=== PATIENT | female | born 1980 | race African-American/Black ===

== ENCOUNTER 2018-03-04 08:55 | Emergency (ER) | payer SELFPAY ==
[2018-03-04 10:15] LABS: NEG OBC UR NEG; POS OBC UR POS; U PREG PATIENT NEGATIVE (NEG)
[2018-03-04 10:19] LABS: BILIRUBIN,URINE NEGATIVE (NEG); CLARITY,URINE CLEAR; COLOR,URINE YELLOW; GLUCOSE,URINE NEGATIVE (NEG); NITRITE,URINE NEGATIVE (NEG); PROTEIN,URINE NEGATIVE (NEG-TRACE); UROBILINOGEN,URINE 0.2 mg/dL (0.2 mg/dL)
[2018-03-04 10:24] LABS: SQUAMOUS EPITHELIAL CELL,UR FEW /LPF
[2018-03-04 10:25] LABS: BACTERIA,URINE FEW /HPF (0-FEW); RBC,URINE 0 /HPF (0-2); WBC,URINE 0 /HPF (0-4)
[2018-03-04] MEDS: metroNIDAZOLE 500 MG TABLET PO ×2 (11:37→11:49)
[2018-03-04] MEDS: cefTRIAXone IM 250 MG VIAL IM (11:37)
[2018-03-04] MEDS: AZITHROMYCIN 250 MG TABLET. PO (11:37)
[2018-03-05 14:32] LABS: CHLAMYDIA PROBE Negative (Negative); GC PROBE Negative (Negative)
== END 2018-03-04 11:53 | disposition home or self-care (01) ==
LOC: ER 08:55
DX: N76.0 Acute vaginitis (principal); B96.89 Other specified bacterial agents as the cause of diseases classified elsewhere; Z98.51 Tubal ligation status
CPT/HCPCS: 81001; 81025; 87491; 87591; 96372; 99284; J0696; Q0111; Q0144

== ENCOUNTER 2018-07-22 07:44 | Emergency (ER) | payer BC ==
[2018-03-04 11:45] VITALS: BP 123/79
[~2018-07-22] VITALS: Ht 162.6 cm; Wt 68.0 kg
[~2018-07-22 07:44] MED LIST: METR500T PO
--- NOTE | 2018-07-22 08:11 | PHYS DOC ---
Past Medical History Past Medical History: No Pertinent History Past Surgical History: Tubal ligation, Other Additional Past Surgical Histo: LEAP Alcohol Use: Occasionally Drug Use: None Adult General Chief Complaint Chief Complaint: OTHER COMPLAINTS HPI HPI Patient is a 38 year old evaluation of vaginal discharge. Patient reports concerns because she obtained a sex toy online. Patient reports onset of brown vaginal discharge shortly after use of a sex toy present for the last 4 days. Patient reports that she is due for a menstrual cycle but has only had small brown/dark red discharge. no abdominal pain, no dysuria. States that [facility] "[facility]". Patient denies any abdominal pelvic pain. Patient denies any sexual activity with male or female partners. Status post BTL Review of Systems Review of Systems Constitutional: Denies fever or chills [] Eyes: Denies change in visual acuity, redness, or eye pain [] HENT: Denies nasal congestion or sore throat [] Respiratory: Denies cough or shortness of breath [] Cardiovascular: No chest pain, no lower extremity edema, no orthopnea GI: Denies abdominal pain, nausea, vomiting, bloody stools or diarrhea [] : Denies dysuria or hematuria [] Musculoskeletal: Denies back pain or joint pain [] Integument: Denies rash or skin lesions [] Neurologic: Denies headache, focal weakness or sensory changes [] Endocrine: Denies polyuria or polydipsia [] All other systems were reviewed and found to be within normal limits, except as documented in this note. Allergies Allergies Allergies Coded Allergies Type Severity Reaction Last Updated Verified No Known Drug Allergies 03/04/18 No Physical Exam Physical Exam Constitutional: Well developed, well nourished, no acute distress, non-toxic appearance. [] HENT: Normocephalic, atraumatic, Eyes: PERRLA, EOMI, conjunctiva normal, no discharge. [] Neck: Normal range of motion, no tenderness, supple, no stridor. [] Cardiovascular:Heart rate regular rhythm, no murmur [] Lungs & Thorax: Bilateral breath sounds clear to auscultation [] Abdomen: Bowel sounds normal, soft, no tenderness, no masses, no pulsatile masses. [] Skin: Warm, dry, no erythema, no rash. [] Extremities: ROM intact, no edema. [] Neurologic: Alert and oriented X 3,no focal deficits noted. [] Psychologic: Affect normal, judgement normal, mood normal. [] Current Patient Data Vital Signs Vital Signs Date Time Temp Pulse Resp B/P (MAP) Pulse Ox O2 Delivery O2 Flow Rate FiO2 07/22/18 07:54 98.0 102 18 149/79 (102) 99 Room Air 98.0 Lab Values Laboratory Tests Test 07/22/18 08:01 POC Urine HCG, Qualitative Hcg negative (Negative) Microbiology 07/22/18 Wet Prep - Final, Complete EKG EKG [] Radiology/Procedures Radiology/Procedures [] Course & Med Decision Making Course & Med Decision Making Pertinent Labs and Imaging studies reviewed. (See chart for details) Pelvic exam with no cervical tenderness, no adnexal tenderness, and no vaginal discharge noted. Patient is not . Wet mount and STD cultures pending. Patient did not have any foul odor. Discussed possibility of dysfunctional uterine bleeding advised continue supportive care. 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 Patient does not currently want any prophylactic treatment for possible STDs. Advised that we'll follow cultures. ER return precautions given. Patient verbalized understanding. All questions answered. Dragon Disclaimer Dragon Disclaimer This electronic medical record was generated, in whole or in part, using a voice recognition dictation system. Departure Departure Impression: Primary Impression: Concern about STD in female without diagnosis Additional Impression: Dysfunctional uterine bleeding Disposition: HOME, SELF-CARE Condition: STABLE Referrals: NO PCP (PCP) Patient Instructions: Uterine Bleeding, Dysfunctional, [id number] Additional Instructions: Thank you for coming to [facility]. Please repeat the attached handouts. Please follow-up with your primary care physician. Return to the ER if your symptoms worsen or you have any other concerns. Problem Qualifiers LEEANN HOUGH DO Jul 22, 2018 08:11
[2018-07-23 15:26] LABS: GC PROBE Negative (Negative)
== END 2018-07-22 09:41 | disposition home or self-care (01) ==
LOC: ER 07:44
DX: N93.8 Other specified abnormal uterine and vaginal bleeding (principal); Z20.2 Contact with and (suspected) exposure to infections with a predominantly sexual mode of transmission; Z98.51 Tubal ligation status
CPT/HCPCS: 81025; 87491; 87591; 99284; Q0111

== ENCOUNTER 2019-12-15 10:51 | Emergency (ER) | payer BC ==
[~2019-12-15] VITALS: Ht 165.1 cm; Wt 63.6 kg
[2019-12-15 11:30] VITALS: BP 149/77
[2019-12-15] MEDS ORDERED: ACYC400T PO (11:34)
[2019-12-15] MEDS ORDERED: SULF1TAB24 PO (11:34)
--- NOTE | 2019-12-15 11:34 | PHYS DOC ---
Past Medical History Past Medical History: No Pertinent History Past Surgical History: Tubal ligation, Other Additional Past Surgical Histo: LEAP Smoking Status: Current Every Day Smoker Alcohol Use: Occasionally Drug Use: None Adult General Chief Complaint Chief Complaint: HIP PAIN [facility] HPI Patient is a 39 year old female who presents with complaint of pain with urination times one week and swelling and itching on her left buttock. Based on her history she has somewhat of a high risk sexual activity. No fever or chills recently. She denies new vaginal discharge. She was recently treated for Trichomonas in October. No medications taken prior to arrival. Patient states that she tried to see her primary care physician today but could not get in. Review of Systems Review of Systems All other ROS is negative unless otherwise stated in HPI Allergies Allergies Allergies Coded Allergies Type Severity Reaction Last Updated Verified No Known Drug Allergies 03/04/18 No Physical Exam Physical Exam See above Constitutional: Well developed, well nourished, no acute distress, non-toxic appearance. [] HENT: Normocephalic, atraumatic, bilateral external ears normal, oropharynx moist, no oral exudates, nose normal. [] Eyes: PERRLA, EOMI, conjunctiva normal, no discharge. [] Neck: Normal range of motion, no tenderness, supple, no stridor. [] Cardiovascular:Heart rate regular rhythm, no murmur [] Lungs & Thorax: Bilateral breath sounds clear to auscultation [] Skin: Warm, dry, no erythema, there is a vesicular rash noted on the left posterior buttock with some surrounding erythema and swelling. Back: No tenderness, no CVA tenderness. [] Extremities: No tenderness, no cyanosis, no clubbing, ROM intact, no edema. [] Neurologic: Alert and oriented X 3, normal motor function, normal sensory function, no focal deficits noted. [] Psychologic: Affect normal, judgement normal, mood normal. [] Current Patient Data Vital Signs Vital Signs Date Time Temp Pulse Resp B/P (MAP) Pulse Ox O2 Delivery O2 Flow Rate FiO2 12/15/19 11:30 98.2 81 8 149/77 (101) 99 Room Air 98.2 Lab Values Laboratory Tests Test 12/15/19 11:30 Urine Collection Type Unknown Urine Color Yellow Urine Clarity Clear Urine pH 6.5 Urine Specific [place] 1.015 Urine Protein Negative mg/dL (NEG-TRACE) Urine Glucose (UA) Negative mg/dL (NEG) Urine Ketones (Stick) Negative mg/dL (NEG) Urine Blood Negative (NEG) Urine Nitrite Negative (NEG) Urine Bilirubin Negative (NEG) Urine Urobilinogen Dipstick 0.2 mg/dL (0.2 mg/dL) Urine Leukocyte Esterase Negative (NEG) Urine RBC 0 /HPF (0-2) Urine WBC Occ /HPF (0-4) Urine Squamous Epithelial Cells Few /LPF Urine Bacteria 0 /HPF (0-FEW) EKG EKG [] Radiology/Procedures Radiology/Procedures [] Course & Med Decision Making Course & Med Decision Making Pertinent Labs and Imaging studies reviewed. (See chart for details) Patient seen for pain with urination and a rash with high risk sexual activity history. We'll check urinalysis and also obtain a sample from a vesicle and send for PCR for herpes. Will start the patient on antiviral medication and antibiotics for presumed infection and have her follow-up with her primary care physician next week. Dragon Disclaimer Dragon Disclaimer This electronic medical record was generated, in whole or in part, using a voice recognition dictation system. Departure Departure Impression: Primary Impression: Rash Additional Impression: Dysuria Disposition: HOME, SELF-CARE Condition: STABLE Referrals: SEMAJ CABRAL MD (PCP) PLEASE FOLLOW UP NEXT WEEK FOR REEVLAUTION AND TO DISCUSS LAB RESULTS FROM TODAY Patient Instructions: Rash Scripts Acyclovir (ACYCLOVIR) 400 Mg Tablet 1 TAB PO TID, #30 TAB Prov: EREN BLANC DO 12/15/19 Sulfamethoxazole/Trimethoprim (BACTRIM DS TABLET) 1 Each Tablet 1 TAB PO BID for infection for 7 Days, #14 TAB Prov: EREN BLANC DO 12/15/19 Problem Qualifiers EREN BLANC DO Dec 15, 2019 11:34
[2019-12-15 11:51] LABS: BILIRUBIN,URINE NEGATIVE (NEG); CLARITY,URINE CLEAR; COLOR,URINE YELLOW; NITRITE,URINE NEGATIVE (NEG); PH,URINE 6.5; PROTEIN,URINE NEGATIVE (NEG-TRACE); UROBILINOGEN,URINE 0.2 mg/dL (0.2 mg/dL)
[2019-12-15 12:05] LABS: RBC,URINE 0 /HPF (0-2)
[2019-12-15 12:06] LABS: BACTERIA,URINE 0 /HPF (0-FEW); SQUAMOUS EPITHELIAL CELL,UR FEW /LPF; WBC,URINE OCC /HPF (0-4)
[2019-12-18 14:09] LABS: HERPES SIMPLEX TYPE 1 Negative (Negative); HERPES SIMPLEX TYPE 2 Positive (Negative)
== END 2019-12-15 12:25 | disposition home or self-care (01) ==
LOC: ER 10:51
DX: R30.0 Dysuria (principal); R21 Rash and other nonspecific skin eruption; L53.9 Erythematous condition, unspecified; R60.0 Localized edema; F17.200 Nicotine dependence, unspecified, uncomplicated; Z98.51 Tubal ligation status; Z98.890 Other specified postprocedural states
CPT/HCPCS: 81001; 87529; 99283

== ENCOUNTER 2021-02-04 17:05 | Emergency (ER) | payer BC ==
[~2021-02-04] VITALS: Ht 162.6 cm; Wt 72.2 kg
[~2021-02-04 17:05] MED LIST changes: +ACYC-12 PO; +SULF1TAB24 PO
[2021-02-04 17:13] VITALS: BP 159/82
[2021-02-04 18:00] LABS: BILIRUBIN,URINE NEGATIVE (NEG); CLARITY,URINE CLEAR; COLOR,URINE YELLOW; NITRITE,URINE NEGATIVE (NEG); PH,URINE 6.5 (<5.0-8.0); PROTEIN,URINE NEGATIVE (NEG-TRACE); UROBILINOGEN,URINE 0.2 mg/dL (0.2 mg/dL)
[2021-02-04 18:24] LABS: BACTERIA,URINE FEW /HPF (0-FEW)
[2021-02-04 18:27] LABS: RBC,URINE OCC /HPF (0-2); WBC,URINE OCC /HPF (0-4)
[2021-02-04] MEDS ORDERED: metroNIDAZOLE 500 MG TABLET PO ONE (18:45)
[2021-02-04] MEDS ORDERED: DOXYCYCLINE HYCLATE 100 MG TABLET PO ONE (18:45)
[2021-02-04] MEDS ORDERED: cefTRIAXone IM 500 MG VIAL. IM ONE (18:45)
[2021-02-04] MEDS ORDERED: METR500T PO (19:04)
[2021-02-04] MEDS ORDERED: DOXY100T PO (19:04)
--- NOTE | 2021-02-04 19:05 | PHYS DOC ---
Past Medical History Past Medical History: STD (CHARITOTAE Calvert APRN) Past Surgical History: Tubal ligation, Other Additional Past Surgical Histo: LEEP (CHARITOTAE Calvert APRN) Smoking Status: Current Every Day Smoker Alcohol Use: Occasionally Drug Use: None (ZEKETAE Freedman APRN) General Adult EDM: Chief Complaint: VAGINAL PROBLEM HPI: HPI: Patient is a 40 year old female with a history of frequent STDs who presents to the ED today complaining of brown vaginal discharge, symptoms of been going on since yesterday, patient is concerned about STDs and would like to be tested and treated. She is also complaining of a lesion on her left labia that she noted yesterday. She states this could have come from friction of her labia especially while working at [employer] where she is constantly moving in tight clothing (ALEFRANDYTAE Calvert APRN) Review of Systems: Review of Systems: Constitutional: Denies fever or chills. [] GI: Denies abdominal pain, nausea, vomiting, bloody stools or diarrhea. [] : Reports vaginal discharge and left labial lesion denies dysuria. [] Musculoskeletal: Denies back pain or joint pain. [] Integument: Denies rash. [] Neurologic: Denies headache, focal weakness or sensory changes. [] Psychiatric: Denies depression or anxiety. [] (CHARITOTAE Calvert APRN) Heart Score: C/O Chest Pain: N/A Risk Factors: Risk Factors: DM, Current or recent (<one month) smoker, HTN, HLP, family history of CAD, obesity. Risk Scores: Score 0 - 3: 2.5% MACE over next 6 weeks - Discharge Home Score 4 - 6: 20.3% MACE over next 6 weeks - Admit for Clinical Observation Score 7 - 10: 72.7% MACE over next 6 weeks - Early Invasive Strategies (TAE ALANIS APRN) Current Medications: Current Medications Medications (Trade) Dose Ordered Sig/Channing Start Time Stop Time Status Last Admin Dose Admin Ceftriaxone Sodium (Rocephin Im) 500 mg 1X ONCE 02/04/21 18:45 02/04/21 18:46 UNV Doxycycline Hyclate (Vibra-Tab) 100 mg 1X ONCE 02/04/21 18:45 02/04/21 18:46 UNV Metronidazole (Flagyl) 2,000 mg 1X ONCE 02/04/21 18:45 02/04/21 18:46 UNV (TAE ALANIS ARCH SUPPORT TECHNICIAN) Allergies: Allergies: Allergies Coded Allergies Type Severity Reaction Last Updated Verified No Known Drug Allergies 03/04/18 No (TAE ALANIS ARCH SUPPORT TECHNICIAN) Physical Exam: PE: Constitutional: Well developed, well nourished, no acute distress, non-toxic appearance. [] Abdomen: Bowel sounds normal, soft, no tenderness, no masses, no pulsatile masses. [] Pelvic exam Left labia majora proximally and with a tiny open wound roughly 0.2 x 0.2 cm. There is no drainage. Cervix is visualized, closed, moderate CMT, no adnexal tenderness, mild amount of brownish smelly discharge Skin: Warm, dry, no erythema, no rash. [] Back: No tenderness, no CVA tenderness. [] Extremities: No tenderness, no cyanosis, no clubbing, ROM intact, no edema. [] Neurologic: Alert and oriented X 3, normal motor function, normal sensory function, no focal deficits noted. [] Psychologic: Affect normal, judgement normal, mood normal. [] (TAE ALANIS ARCH SUPPORT TECHNICIAN) Current Patient Data: Labs: Laboratory Tests Test 02/04/21 17:13 02/04/21 17:16 Urine Collection Type Void Urine Color Yellow Urine Clarity Clear Urine pH 6.5 (<5.0-8.0) Urine Specific [place] >=1.030 (1.000-1.030) Urine Protein Negative mg/dL (NEG-TRACE) Urine Glucose (UA) Negative mg/dL (NEG) Urine Ketones (Stick) Negative mg/dL (NEG) Urine Blood Negative (NEG) Urine Nitrite Negative (NEG) Urine Bilirubin Negative (NEG) Urine Urobilinogen Dipstick 0.2 mg/dL (0.2 mg/dL) Urine Leukocyte Esterase Negative (NEG) Urine RBC Occ /HPF (0-2) Urine WBC Occ /HPF (0-4) Urine Squamous Epithelial Cells Mod /LPF Urine Bacteria Few /HPF (0-FEW) Urine Mucus Marked /LPF POC Urine HCG, Qualitative Hcg negative (Negative) Microbiology 02/04/21 Wet Prep - Final, Complete Vital Signs: Vital Signs Date Time Temp Pulse Resp B/P (MAP) Pulse Ox O2 Delivery O2 Flow Rate FiO2 02/04/21 17:13 98.6 93 16 159/82 (107) 99 Room Air 98.6 (ALESUSHANTTAE APRN) EKG: EKG: [] (TAE ALANIS APRN) Radiology/Procedures: Radiology/Procedures: [] (TAE ALANIS APRN) Course & Med Decision Making: Course & Med Decision Making Pertinent Labs and Imaging studies reviewed. (See chart for details) This is a 40-year-old female patient presented to the ED today complaining of vaginal discharge, concern for STD as well as a left labial lesion. The left labial lesion is hard to classify right now because it is a plain open wound that could be friction or on worse case herpes, there is no drainage over this would be able to swab it for herpes. She denies any previous history of herpes. Wet prep positive for trichomonas and bacterial vaginosis. She was given STD treatment per new CDC guidelines, UA is negative. Education provided on STDs. Discharge to home (TAE ALANIS APRN) Dragon Disclaimer: Dragon Disclaimer: This electronic medical record was generated, in whole or in part, using a voice recognition dictation system. (TAE ALANIS APRN) Departure Departure Impression: Primary Impression: Bacterial vaginosis Additional Impression: Trichomonas vaginalis infection Disposition: 01 HOME / SELF CARE / HOMELESS Condition: STABLE Referrals: SEMAJ CABRAL MD (PCP) Follow-up in 1 to 2 weeks Patient Instructions: Bacterial Vaginosis, Trichomoniasis Additional Instructions: You were evaluated in the emergency room, you tested positive for trichomonas, this is a sexually transmitted disease. Please take the prescribed antibiotics until completed. Please follow-up with your doctor in 1 week. Do not have any intercourse for 14 days. Please complete the rest of the prescribed medications. Ensure you call all your partners and let them know you tested positive for STDs and asked him to seek treatment Scripts Metronidazole (FLAGYL) 500 Mg Tablet 1 TAB PO BID, #10 TAB Prov: TAE ALANIS APRN 02/04/21 Doxycycline Hyclate (DOXYCYCLINE HYCLATE) 100 Mg Tablet 1 TAB PO BID, #14 TAB Prov: TAE ALANIS APRN 02/04/21 Attending Signature Attending Signature I have reviewed the PA/INVENTORY TRANSCRIBER's note and plan of care. I was available for consultation as needed during the patient's visit in the emergency department. I agree with the clinical impression, plan, and disposition. (JULIUS JIMENEZ DO) TAE ALANIS ARCH SUPPORT TECHNICIAN Feb 04, 2021 19:05 JULIUS JIMENEZ DO Feb 05, 2021 06:29
[2021-02-05 17:37] LABS: GC PROBE Negative (Negative)
== END 2021-02-04 20:00 | disposition home or self-care (01) ==
LOC: ER 17:05
DX: N76.0 Acute vaginitis (principal); B96.89 Other specified bacterial agents as the cause of diseases classified elsewhere; A59.01 Trichomonal vulvovaginitis; F17.200 Nicotine dependence, unspecified, uncomplicated; Z98.51 Tubal ligation status; Z98.890 Other specified postprocedural states; Z20.2 Contact with and (suspected) exposure to infections with a predominantly sexual mode of transmission
CPT/HCPCS: 81001; 81025; 87491; 87591; 96372; 99283; J0696; Q0111

== ENCOUNTER 2021-10-17 06:05 | Emergency (ER) | payer BC ==
[~2021-10-17] VITALS: Ht 162.6 cm; Wt 68.2 kg
[~2021-10-17 06:05] MED LIST changes: +DOXY100T PO
--- NOTE | 2021-10-17 06:44 | PHYS DOC ---
Past Medical History Past Medical History: STD Past Surgical History: Tubal ligation, Other Additional Past Surgical Histo: LEEP Smoking Status: Current Every Day Smoker Alcohol Use: Occasionally Drug Use: None General Adult EDM: Chief Complaint: ABDOMINAL PAIN HPI: HPI: Patient is a 41 year old female with previous history of BV who presents with lower abdominal pain. Is been present for the past 3 days. Radiates around to her low back. Associated with urinary frequency, stating that she is getting up several times a night to go pee. Denies dysuria, hematuria or urgency. Denies any new vaginal discharge. She is sexually active with one partner. She is unsure whether her partner has additional partners. She states the discomfort is similar to previous BV episodes, but has not had any vaginal discharge or malodor. No n/v, diarrhea, bloody stools. Normal BMs. No fever/chills. Review of Systems: Review of Systems: Constitutional: Denies fever or chills. [] Eyes: Denies change in visual acuity. [] HENT: Denies nasal congestion or sore throat. [] Respiratory: Denies cough or shortness of breath. [] Cardiovascular: Denies chest pain or edema. [] GI: Reports lower abd pain radiating to low back. Denies nausea, vomiting, bloody stools or diarrhea. [] : Denies dysuria. Reports urinary frequency. [] Musculoskeletal: Denies back pain or joint pain. [] Integument: Denies rash. [] Neurologic: Denies headache, focal weakness or sensory changes. [] Psychiatric: Denies depression or anxiety. [] Heart Score: C/O Chest Pain: No Allergies: Allergies: Allergies Coded Allergies Type Severity Reaction Last Updated Verified No Known Drug Allergies 03/04/18 No Physical Exam: PE: Constitutional: Well developed, well nourished, no acute distress, non-toxic appearance. [] HENT: Normocephalic, atraumatic Eyes: PERRLA, EOMI, conjunctiva normal, no discharge. [] Neck: Normal range of motion, no tenderness, supple, no stridor. [] Cardiovascular:Heart rate regular rhythm, no murmur [] Lungs & Thorax: Bilateral breath sounds clear to auscultation [] Abdomen: Soft. Mild lower abd tenderness to palpation in both RLQ, LLQ, and suprapubic region. No rebound, rigidity or guarding. Pelvic: external genitalia normal, no lesions. thin brown discharge seen. Cervix visualized appears slightly pale, no masses. faint blood coming from cervical os. No motion tenderness. Extremities: No tenderness, no edema. [] Neurologic: Alert and oriented X 3, normal motor function, normal sensory function, no focal deficits noted. [] Psychologic: Affect normal, judgement normal, mood normal. [] EKG: EKG: [] Radiology/Procedures: Radiology/Procedures: [] Impression: [facility] [address] [place] [address] IMAGING REPORT Signed PATIENT: CINDI SNOWCOUNT: [id number] : 1980 LOCATION: ER AGE: 41 SEX: F EXAM STATUS: REG ER ORD. PHYSICIAN: DANNI DIAZ MD REASON: pelvic pain PROCEDURE: PELVIS ULTRASOUND EXAM: Pelvic sonogram. HISTORY: Pelvic pain. TECHNIQUE: Sonographic imaging of the pelvis was performed. COMPARISON: None. FINDINGS: The uterus measures 9.7 x 5.2 x 4.9 cm. The endometrial stripe measures 1.3 cm in thickness. The ovaries are normal in size and demonstrate normal blood flow. There are small physiologic ovarian follicles measuring 1.1 cm bilaterally. There is no pelvic free fluid. IMPRESSION: 1. Thickened endometrial stripe. Correlate with the phase the patient's menstrual cycle. 2. Otherwise, relatively unremarkable pelvic sonogram. Electronically signed by: Malgorzata Banks MD (10/17/2021 8:46 AM) [id number] DICTATED and SIGNED BY: MALGORZATA BANKS MD DATE: 10/17/21 [id number] 0 Course & Med Decision Making: Course & Med Decision Making Pertinent Labs and Imaging studies reviewed. (See chart for details) Patient 41-year-old female who presents with 3 days of lower abdominal/pelvic pain that radiates towards the low back as well as urinary frequency. She is afebrile, hemodynamically stable, and well-appearing on exam. She has mild lower abdominal tenderness to palpation. UA does not appear infected. Pelvic exam shows brown thin discharge. Will send for GC/chlamydia, but will not treat empirically. Wet prep did show bacterial vaginosis. Pelvic ultrasound did not show any evidence of ovarian enlargement or torsion. Urine test was negative. Given 3 days of symptoms and no elevation in WBC with relatively benign abdominal exam do not feel that she requires work-up for appendicitis or other acute surgical intra-abdominal process not addressed with above. We will prescribe a 7-day course of metronidazole. Incidentally a microcytic anemia was identified. No previous levels to compare. I have asked that she follow-up with her PCP regarding this as well as to ensure her symptoms improve. [employer] [employer] Disclaimer: Dragon Disclaimer: This electronic medical record was generated, in whole or in part, using a voice recognition dictation system. Departure Departure Impression: Primary Impression: Bacterial vaginosis Additional Impression: Microcytic anemia Disposition: HOME / SELF CARE / HOMELESS Condition: STABLE Referrals: SEMAJ CABRAL MD (PCP) Additional Instructions: Your work-up showed evidence of bacterial vaginosis. It also showed that your hemoglobin (red blood cell levels) was low. Please follow-up with your primary care doctor to look into your low blood levels as well as to ensure your symptoms improve. The treatment for bacterial vaginosis is an antibiotic called metronidazole. Please complete the full course of this medication. It is very important that you do not drink alcohol while taking metronidazole, because it can make you extremely ill. Scripts Metronidazole (METRONIDAZOLE) 500 Mg Tablet 1 TAB PO BID for 7 Days, #14 TAB 0 Refills Prov: DANNI DIAZ MD 10/17/21 DANNI DIAZ MD Oct 17, 2021 06:43
[2021-10-17 06:47] LABS: BILIRUBIN,URINE NEGATIVE (NEG); CLARITY,URINE CLEAR; COLOR,URINE YELLOW; NITRITE,URINE NEGATIVE (NEG); PROTEIN,URINE NEGATIVE (NEG-TRACE); UROBILINOGEN,URINE 0.2 mg/dL (0.2 mg/dL)
[2021-10-17 07:46] LABS: BASO % 1 % (0-3); EOS # 0.1 x10^3/uL (0.0-0.7); EOS % 3 % (0-3); HEMATOCRIT 31.1 % (36.0-47.0); HEMOGLOBIN 9.4 g/dL (12.0-15.5); LYMPH # 1.5 x10^3/uL (1.0-4.8); LYMPH % 36 % (24-48); MEAN CORPUSCULAR HEMOGLOBIN 23 pg (25-35); MEAN CORPUSCULAR HGB CONC 30 g/dL (31-37); MEAN CORPUSCULAR VOLUME 76 fL (79-100); MONO # 0.3 x10^3/uL (0.0-1.1); MONO % 8 % (0-9); NEUT # 2.3 x10^3/uL (1.8-7.7); NEUT % 53 % (31-73); PLATELET COUNT 416 x10^3/uL (140-400); WHITE BLOOD COUNT 4.3 x10^3/uL (4.0-11.0)
[2021-10-17 07:48] LABS: BACTERIA,URINE 0 /HPF (0-FEW); RBC,URINE 0 /HPF (0-2); WBC,URINE 0 /HPF (0-4)
[2021-10-17 08:00] LABS: CALCIUM 8.1 mg/dL (8.5-10.1); CREATININE 0.6 mg/dL (0.6-1.0); POTASSIUM 4.1 mmol/L (3.5-5.1)
[2021-10-17 08:05] LABS: ALBUMIN 3.6 g/dL (3.4-5.0); ALBUMIN/GLOBULIN RATIO 0.9 (1.0-1.7); TOTAL BILIRUBIN 0.4 mg/dL (0.2-1.0); TOTAL PROTEIN 7.8 g/dL (6.4-8.2)
[2021-10-17] MEDS ORDERED: metroNIDAZOLE 500 MG TABLET PO ONE (08:15)
--- NOTE | 2021-10-17 08:48 | RAD ---
EXAM: Pelvic sonogram. HISTORY: Pelvic pain. TECHNIQUE: Sonographic imaging of the pelvis was performed. COMPARISON: None. FINDINGS: The uterus measures 9.7 x 5.2 x 4.9 cm. The endometrial stripe measures 1.3 cm in thickness . The ovaries are normal in size and demonstrate normal blood flow. There are small physiologic ovari an follicles measuring 1.1 cm bilaterally. There is no pelvic free fluid. IMPRESSION: 1. Thickened endometrial stripe. Correlate with the phase the patient's menstrual cycle. 2. Otherwise, relatively unremarkable pelvic sonogram. Electronically signed by: Malgorzata Santo MD (10/17/2021 8:46 AM) [id number]
[2021-10-17] MEDS ORDERED: METR-34 PO (09:17)
[2021-10-17 09:20] VITALS: BP 132/76
[2021-10-18 20:37] LABS: GC PROBE Negative (Negative)
== END 2021-10-17 09:25 | disposition home or self-care (01) ==
LOC: ER 06:05
DX: N76.0 Acute vaginitis (principal); B96.89 Other specified bacterial agents as the cause of diseases classified elsewhere; D50.9 Iron deficiency anemia, unspecified; F17.200 Nicotine dependence, unspecified, uncomplicated; Z98.51 Tubal ligation status
CPT/HCPCS: 36415; 76856; 80053; 81001; 81025; 83690; 85025; 87491; 87591; 99284; Q0111